=== PATIENT | male | born 1960 | race African-American/Black ===

== ENCOUNTER 2024-08-26 13:26 | Observation (INO) | payer OTHER ==
[~2024-08-26 13:26] MED LIST: Iopamidol-370 76% 500 ML MDV (1 ML CHARGE) ONE
[2024-08-26] MEDS ORDERED: Morphine 4 MG/ML VIAL ONE (14:39)
[2024-08-26 16:11] LABS: #Basophils Less than 0.03 10x3/uL (0.0-0.2); %Basophils 0.3 % (0.0-1.0); %Eosinophils 2.4 % (0.0-10.0); %Lymphocytes 30.1 % (21.0-51.0); %Monocytes 6.6 % (0.0-10.0); %Neutrophils 60.3 % (42.0-75.0); Hematocrit 47.6 % (42.0-52.0); Hemoglobin 15.3 g/dL (14.0-18.0); Mean Corpuscular HGB CONC 32.1 g/dL (32.0-36.0); Mean Corpuscular Hemoglobin 26.7 pg (27.0-31.0); Mean Corpuscular Volume 83.2 fL (78.0-98.0); Mean Platelet Volume 11.3 fL (7.4-10.4); Platelet Count 160 10x3/uL (130-400); RBC Distribution Width 15.3 % (11.5-14.5); Red Blood Cell (RBC) Count 5.72 mill/uL (4.70-6.10)
[2024-08-26 16:27] LABS: ALT (SGPT) 22 U/L (8-55); AST (SGOT) 47 U/L (5-34); Albumin 4.1 g/dL (3.4-4.8); Alkaline Phosphatase 81 U/L (40-110); Anion Gap 12 mmol/L (10-20); BUN (Urea Nitrogen) 13 mg/dL (8.4-25.7); Bilirubin, Total 0.5 mg/dL (0.2-1.2); Calc. Creatinine Clearance 0 mL/min (70-130); Carbon Dioxide 26 mmol/L (23-31); Chloride 109 mmol/L (98-107); Estimated GFR 95; Globulin 4.1 g/dL (2.4-3.5); Glucose 95 mg/dL (80-115); Potassium 3.8 mmol/L (3.5-5.1); Protein, Total 8.2 g/dL (5.8-8.1); Sodium 143 mmol/L (136-145)
[2024-08-26 16:31] LABS: Troponin I 0.028 ng/mL (< 0.028)
[2024-08-26] MEDS ORDERED: hydrALAZINE 20 MG/ML VIAL ONE (18:11)
[2024-08-26] MEDS ORDERED: Aspirin Chewable 81 MG TAB ONE (18:48)
[2024-08-26] MEDS ORDERED: Nitroglycerin 0.4 MG TAB (25 Tab Bottle) SL PRN (20:34)
[2024-08-26] MEDS ORDERED: Acetaminophen 650 MG Suppository PR PRN (20:34)
[2024-08-26] MEDS ORDERED: Acetaminophen 325 MG TAB PO PRN (20:34)
[2024-08-26 20:39] LABS: Troponin I 0.012 ng/mL (< 0.028)
[2024-08-26] MEDS: Atorvastatin Calcium 40 MG TAB PO SCH (23:39)
[2024-08-26] MEDS ORDERED: Atorvastatin Calcium 40 MG TAB ONE (23:40)
[2024-08-26] MEDS: Famotidine/PF 20 mg/2ml Vial SLOW IVP SCH (23:40)
[2024-08-26] MEDS ORDERED: Famotidine/PF 20 mg/2ml Vial ONE (23:40)
[2024-08-27] MEDS ORDERED: Amlodipine 5 MG TAB ONE (04:26)
[2024-08-27] MEDS ORDERED: Lisinopril 20 MG TAB ONE (04:27)
[2024-08-27] MEDS: Terazosin HCl 5 MG CAP PO SCH (04:30)
[2024-08-27] MEDS: Lisinopril 20 MG TAB PO SCH (04:30)
[2024-08-27] MEDS: Amlodipine 5 MG TAB PO SCH (04:30)
[2024-08-27 05:36] LABS: #Basophils Less than 0.03 10x3/uL (0.0-0.2); %Basophils 0.2 % (0.0-1.0); %Monocytes 9.5 % (0.0-10.0); %Neutrophils 69.1 % (42.0-75.0); Hematocrit 44.2 % (42.0-52.0); Hemoglobin 14.5 g/dL (14.0-18.0); Mean Corpuscular HGB CONC 32.8 g/dL (32.0-36.0); Mean Corpuscular Hemoglobin 26.7 pg (27.0-31.0); Mean Corpuscular Volume 81.4 fL (78.0-98.0); Platelet Count 151 10x3/uL (130-400); RBC Distribution Width 15.6 % (11.5-14.5); Red Blood Cell (RBC) Count 5.43 mill/uL (4.70-6.10)
[2024-08-27 05:55] LABS: Anion Gap 14 mmol/L (10-20); BUN (Urea Nitrogen) 14 mg/dL (8.4-25.7); Calc. Creatinine Clearance 85 mL/min (70-130); Calcium 8.9 mg/dL (7.8-10.44); Carbon Dioxide 25 mmol/L (23-31); Chloride 107 mmol/L (98-107); Estimated GFR 75; Glucose 109 mg/dL (80-115); Potassium 3.6 mmol/L (3.5-5.1); Sodium 142 mmol/L (136-145)
[2024-08-27] MEDS ORDERED: hydrALAZINE 20 MG/ML VIAL SLOW IVP PRN (08:34)
[2024-08-27] MEDS ORDERED: Lisinopril 20 MG TAB PO SCH (09:00)
[2024-08-27] MEDS ORDERED: Amlodipine 5 MG TAB PO SCH (09:00)
[2024-08-27] MEDS ORDERED: Pantoprazole DR 40 MG TAB ONE (09:13)
[2024-08-27] MEDS ORDERED: Aspirin 81 mg Enteric Coated Tablet ONE (09:13)
[2024-08-27] MEDS ORDERED: Famotidine/PF 20 mg/2ml Vial ONE (09:14)
[2024-08-27] MEDS ORDERED: Enoxaparin 40 MG (0.4 mL) SYRINGE ONE (09:14)
[2024-08-27] MEDS: Aspirin Chewable 81 MG TAB PO SCH (09:28)
[2024-08-27] MEDS: Pantoprazole DR 40 MG TAB PO SCH (09:28)
[2024-08-27] MEDS: Enoxaparin 40 MG (0.4 mL) SYRINGE SC SCH (09:30)
[2024-08-27] MEDS ORDERED: Aspirin Chewable 81 MG TAB ONE (09:36)
[2024-08-27] MEDS ORDERED: Regadenoson 0.4 MG/5 ML SYRINGE ONE (12:24)
[2024-08-27 17:11] VITALS: BP 132/82; TEMP 97.7
[2024-08-27 17:56] VITALS: BMI 28.2
[2024-08-28] MEDS ORDERED: Lisinopril 20 MG TAB PO SCH (09:00)
[2024-08-28] MEDS ORDERED: Amlodipine 5 MG TAB PO SCH (09:00)
== END 2024-08-27 18:52 ==
LOC: ERS 13:26 → EEVIPCON 13:26 → SUATTDRO 13:26 → ERHOLD 20:28 → 2SE 08-27 15:40
PROVIDERS: ADMIT Family Medicine; ATTEND Internal Medicine
DX: R07.9 Chest pain, unspecified (principal); R29.898 Other symptoms and signs involving the musculoskeletal system; E78.5 Hyperlipidemia, unspecified; B19.20 Unspecified viral hepatitis C without hepatic coma; M79.606 Pain in leg, unspecified; I10 Essential (primary) hypertension; I16.0 Hypertensive urgency; N40.0 Benign prostatic hyperplasia without lower urinary tract symptoms; Z79.899 Other long term (current) drug therapy; Z79.82 Long term (current) use of aspirin
CPT/HCPCS: 36415; 71275; 72131; 72170; 74174; 78452; 80048; 80053; 84484; 85025; 93005; 93017; A9500; G0378; J0360; J1650; J2272; J2785; J3490; Q9967